=== PATIENT | male | born 1985 | race Caucasian/White ===

== ENCOUNTER 2024-05-03 18:45 | Observation (INO) | payer OTHER, SELFPAY ==
[2024-05-03] VITALS (8 sets, daily range): BP systolic 122–142; BP diastolic 62–86; BMI 29.0
--- NOTE | 2024-05-03 13:02 | ED.GENMED ---
ED Provider Triage
<Rea Acharya PA-C - Last Filed: 05/03/24 16:32>
-
Patient seen by provider in Triage?: Seen in Triage
Attestation: A medical screening examination has been initiated by a qualified medical provider. Based on the assessment performed at this time, it has been determined that an emergent medical condition may exist and the patient has been informed
that further medical evaluation and possible additional diagnostic testing may be needed.
HPI: 39yoM here with congestion, SOB, chest discomfort since the weekend. Yong recently had walking pneumonia. Oxygen saturation 94% on home pulse ox.
GENERAL: Alert , in no apparent distress
EYE: No visual abnormalities.
NECK: Trachea midline
ENT: No visible abnormalities.
LUNGS: No acute respiratory distress
NEUROLOGICAL: Alert and oriented
SKIN: Skin intact. No visible changes.
MUSCULOSKELETAL: Moving extremities normally
PSYCH: Normal and appropriate interaction.
This is a medical evaluation conducted in person to initiate diagnostic evaluation and provide initial therapeutics. Please see further documentation by the treating clinician.
Cardiac labs, EKG, COVID/flu swab, and CXR ordered.
History of Present Illness
<Rea Acharya PA-C - Last Filed: 05/03/24 16:32>
General
Chief Complaint: Breathing Problem
Time Seen by Provider: 05/03/24 14:16
<Tracey Greenwood PA-C - Last Filed: 05/03/24 18:01>
General
Source: patient
Exam Limitations: none
Nursing documentation reviewed up to this point in time: agreed with
History of Present Illness
History of Present Illness:
This is a 39 y/o male with pmh of enlarged left ventricle presents emergency department today with concerns of chest pain for the past 2 days. Patient also has associated congestion and intermittent coughing. Patient has not had any fevers or
chills. Patient has had no sick contacts. Patient states that this feels similar to when he had COVID. Patient denies any recent travel, any cancer history, any redness or swelling in his lower extremities. Patient has no family history of
cardiac disease. Patient does not smoke. 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 Patient states that
the pain is worse when he has a deep breath, he has not noticed that it gets worse with exertion. Patient denies any upper back pain. Patient denies any belly pain, nausea, vomiting.
Review of Systems
<Tracey Greenwood PA-C - Last Filed: 05/03/24 18:01>
Review of Systems
All Other Systems: ROS reviewed and negative except as documented in HPI and ROS
Phy Exam
<Tracey Greenwood PA-C - Last Filed: 05/03/24 18:01>
Physical Exam
Physical Exam:
General: Patient is well appearing and in no acute distress; non-toxic
Skin: Warm and dry, no rashes or lesions
Head: Normocephalic, atraumatic
Eyes: Sclera non-icteric. EOMs intact.
Cardiac: Regular rate and rhythm, no murmurs, no tenderness to palpation of the external chest wall
Pulm: Normal respiratory effort, no wheezes, rales, or rhonchi
Neuro: CN II-XII intact, no focal neurologic deficits.
Psychiatric: Appropriate mood and affect.
Course
<Rea Acharya PA-C - Last Filed: 05/03/24 16:32>
Orders/Labs/Results
Orders:
Orders
05/03/24 12:42
EKG [Electrocardiogram (*1)] Urgent
Reason for Study: Chest Pain
EKG- Treatment ONCE
05/03/24 13:10
COVID-19 Antigen Urgent
Source: Nasal Swab
Complete Blood Count/With Diff Urgent
Comprehensive Metabolic Panel Urgent
Troponin I Urgent
Influenza A+B Rapid Molecular Urgent
VALERIE Source: Nasal Swab
Specimen Description:
05/03/24 14:27
CT Chest Pe Study Urgent
Comment:
Reason For Exam: pleurtic chest pain
05/03/24 16:00
Electrocardiogram (*1) Urgent
Reason for Study: Chest Pain
05/03/24 16:01
Troponin I Urgent
05/03/24 16:37
CefTRIAXone [Rocephin] 1,000 mg IV NOW STA
Ipratropium/Albuterol Sulfate [Duoneb] 3 ml INH R NOW STA
MethylPREDNISolone PF [Solu-Medrol Pf] 125 mg IV NOW STA
05/03/24 16:38
Azithromycin 500 mg/250 ml [Zithromax Infusion] 500 mg in 250 ml IV NOW
CefTRIAXone [Rocephin] 1,000 mg IV NOW STA
05/03/24 17:01
Sterile Water [Sterile Water For Injection] 10 ml .ROUTE .[facility]-MED ONE
05/03/24 17:42
Doxycycline Hyclate [Vibramycin] 100 mg 0.9% Sodium Chloride 250 ml [Nss] 250 ml IV NOW
Abnormal Lab Results
05/03/24 05/03/24
13:10 16:01
Absolute Monos (auto) 0.9 H 10^3/uL
(0.1-0.6)
Monocytes % 10.0 H %
(1.7-9.3)
Carbon Dioxide 32 H mmol/L
(22-30)
Glucose 102 H mg/dl
(70-99)
Troponin I 0.083 H* ng/ml 0.090 H* ng/ml
05/03/24 13:10
05/03/24 13:10
Vital Signs
Initial and Last Documented VS:
Initial Vital Signs
Temp Pulse Resp BP Pulse Ox
98.3 F 51 18 137/86 100
05/03/24 12:57 05/03/24 12:57 05/03/24 12:57 05/03/24 12:57 05/03/24 12:57
Last Documented Vital Signs
Temp Pulse Resp BP Pulse Ox
98.3 F 53 16 125/76 98
05/03/24 12:57 05/03/24 17:00 05/03/24 12:59 05/03/24 17:00 05/03/24 15:50
<Tracey Greenwood PA-C - Last Filed: 05/03/24 18:01>
Orders/Labs/Results
Orders:
Orders
05/03/24 12:42
EKG [Electrocardiogram (*1)] Urgent
Reason for Study: Chest Pain
EKG- Treatment ONCE
05/03/24 13:10
COVID-19 Antigen Urgent
Source: Nasal Swab
Complete Blood Count/With Diff Urgent
Comprehensive Metabolic Panel Urgent
Troponin I Urgent
Influenza A+B Rapid Molecular Urgent
VALERIE Source: Nasal Swab
Specimen Description:
05/03/24 14:27
CT Chest Pe Study Urgent
Comment:
Reason For Exam: pleurtic chest pain
05/03/24 16:00
Electrocardiogram (*1) Urgent
Reason for Study: Chest Pain
05/03/24 16:01
Troponin I Urgent
05/03/24 16:37
CefTRIAXone [Rocephin] 1,000 mg IV NOW STA
Ipratropium/Albuterol Sulfate [Duoneb] 3 ml INH R NOW STA
MethylPREDNISolone PF [Solu-Medrol Pf] 125 mg IV NOW STA
05/03/24 16:38
Azithromycin 500 mg/250 ml [Zithromax Infusion] 500 mg in 250 ml IV NOW
CefTRIAXone [Rocephin] 1,000 mg IV NOW STA
05/03/24 17:01
Sterile Water [Sterile Water For Injection] 10 ml .ROUTE .STK-MED ONE
05/03/24 17:42
Doxycycline Hyclate [Vibramycin] 100 mg 0.9% Sodium Chloride 250 ml [Nss] 250 ml IV NOW
Abnormal Lab Results
05/03/24 05/03/24
13:10 16:01
Absolute Monos (auto) 0.9 H 10^3/uL
(0.1-0.6)
Monocytes % 10.0 H %
(1.7-9.3)
Carbon Dioxide 32 H mmol/L
(22-30)
Glucose 102 H mg/dl
(70-99)
Troponin I 0.083 H* ng/ml 0.090 H* ng/ml
05/03/24 13:10
05/03/24 13:10
Vital Signs
Initial and Last Documented VS:
Initial Vital Signs
Temp Pulse Resp BP Pulse Ox
98.3 F 51 18 137/86 100
05/03/24 12:57 05/03/24 12:57 05/03/24 12:57 05/03/24 12:57 05/03/24 12:57
Last Documented Vital Signs
Temp Pulse Resp BP Pulse Ox
98.3 F 53 16 125/76 98
05/03/24 12:57 05/03/24 17:00 05/03/24 12:59 05/03/24 17:00 05/03/24 15:50
<Avery Murphy MD - Last Filed: 05/03/24 16:38>
Orders/Labs/Results
Orders:
Orders
05/03/24 12:42
EKG [Electrocardiogram (*1)] Urgent
Reason for Study: Chest Pain
EKG- Treatment ONCE
05/03/24 13:10
COVID-19 Antigen Urgent
Source: Nasal Swab
Complete Blood Count/With Diff Urgent
Comprehensive Metabolic Panel Urgent
Troponin I Urgent
Influenza A+B Rapid Molecular Urgent
VALERIE Source: Nasal Swab
Specimen Description:
05/03/24 14:27
CT Chest Pe Study Urgent
Comment:
Reason For Exam: pleurtic chest pain
05/03/24 16:00
Electrocardiogram (*1) Urgent
Reason for Study: Chest Pain
05/03/24 16:01
Troponin I Urgent
05/03/24 16:37
CefTRIAXone [Rocephin] 1,000 mg IV NOW STA
Ipratropium/Albuterol Sulfate [Duoneb] 3 ml INH R NOW STA
MethylPREDNISolone PF [Solu-Medrol Pf] 125 mg IV NOW STA
05/03/24 16:38
Azithromycin 500 mg/250 ml [Zithromax Infusion] 500 mg in 250 ml IV NOW
CefTRIAXone [Rocephin] 1,000 mg IV NOW STA
05/03/24 17:01
Sterile Water [Sterile Water For Injection] 10 ml .ROUTE .[facility]
05/03/24 17:42
Doxycycline Hyclate [Vibramycin] 100 mg 0.9% Sodium Chloride 250 ml [Nss] 250 ml IV NOW
Abnormal Lab Results
05/03/24 05/03/24
13:10 16:01
Absolute Monos (auto) 0.9 H 10^3/uL
(0.1-0.6)
Monocytes % 10.0 H %
(1.7-9.3)
Carbon Dioxide 32 H mmol/L
(22-30)
Glucose 102 H mg/dl
(70-99)
Troponin I 0.083 H* ng/ml 0.090 H* ng/ml
05/03/24 13:10
05/03/24 13:10
Vital Signs
Initial and Last Documented VS:
Initial Vital Signs
Temp Pulse Resp BP Pulse Ox
98.3 F 51 18 137/86 100
05/03/24 12:57 05/03/24 12:57 05/03/24 12:57 05/03/24 12:57 05/03/24 12:57
Last Documented Vital Signs
Temp Pulse Resp BP Pulse Ox
98.3 F 53 16 125/76 98
05/03/24 12:57 05/03/24 17:00 05/03/24 12:59 05/03/24 17:00 05/03/24 15:50
<Tracey Greenwood PA-C - Last Filed: 05/03/24 18:01>
MDM/Problems Addressed
Differential Diagnosis Includes:
ddx include PE, myocarditis, pericarditis, pneumonia, pneumothorax
MDM/Problems Addressed:
39 y/o male presents to the ER today with concerns of pleuritic chest pain. On exam, he is well appearing in no acute distress, heart RRR, no murmurs. Afebrile. CTA negative for PE does show pneumonia. In light of troponin mildly elevated,will admit
for further cardiac workup and pneumonia treatment.
Chronic conditions affecting care:
n/a
Acute Exacerbation and/or Progression of Chronic Illness:
n/a
<Tracey Greenwood PA-C - Last Filed: 05/03/24 18:01>
*Critical Care Note
Total Time (30-74mins, 75-104mins- exclusive of procedures): Not Applicable
ED Attending Note
<Rea Acharya PA-C - Last Filed: 05/03/24 16:32>
-
Portions of this chart may have been created with voice recognition software.� Occasional wrong word or��sound alike� substitutions may have occurred due to the inherent limitations of voice recognition software.
<Avery Murphy MD - Last Filed: 05/03/24 16:38>
ED Attending Note
Patient seen and examined by attending physician: Yes
ED Attending Note:
I have seen and evaluated the patient with a [id number] encounter. I have spoken to the advance practicer provider and involved in the medical history, the physical exam, medical decision making.
Evaluation and management service: agree unless noted differently below.
Results interpretation: agree unless noted differently below.
Focused HPI: 39-year-old male with no reported chronic medical issues presents to the ER for evaluation of chest pain. Patient reports that symptoms started Thursday and have been constant since that time. He reports a heaviness/soreness in the mid
sternum that is consistent but he will occasionally have sharper pains particular inspiration. He reports a sensation of congestion in the chest. Reports mild shortness of breath. He has had wheezing and mild coughing. Denies any fever. He
denies any other complaints.
Physical exam: Awake alert not in distress. Vital signs all within acceptable range. He has scattered wheezing throughout all lung szymanski. Occasional cough. No cardiac rubs gallops or murmurs appreciated. No edema in the extremities.
Medical Decision Makin-year-old male presents to the emergency room for evaluation of atypical chest pain associate with congestion and cough, wheezing over the past few days. Labs were sent off including a CBC and a CMP which were
unremarkable. His EKG shows a sinus rhythm. His initial troponin is elevated to 0.083. COVID and flu negative. CTA chest showed no PE but does show small right upper lobe pneumonia. Possible troponin elevation is in the setting of demand with
respiratory infection versus viral infection with some element of rahel-/myocarditis. Will plan to cover with antibiotics for pneumonia. Will give DuoNeb treatment with wheezing and provide a dose of steroids. Will admit for trending of troponins.
Discharge Plan
Departure
Patient Disposition: Admit
Date of Disposition: 05/03/24
Time of Disposition: 16:40
Admit to: Med/Surg
Presentation/result/management discussed w/ accepting MD/DO: Hospitalist
Discharge Problem:
Community acquired pneumonia, Chest pain, Elevated troponin
Prescriptions:
No Action
No Current Medications
0
Referrals:
Maximiliano Adams DO [Family Provider] -
Interventions
Interventions:
*Risk Screen - Suicide Last Done: 05/03/24 16:00
*General Assessment Last Done: 05/03/24 15:45
*Neglect/Abuse Screening Last Done: 05/03/24 15:45
ED- Fall Risk Assessment Last Done: 05/03/24 15:59
*ED COVID-19 Vaccine History Last Done: 05/03/24 15:45
ED- Cardiac Assessment Last Done: 05/03/24 15:45
ED- Pulmonary Assessment Last Done: 05/03/24 15:50
Discharge Date and Time
Print Language: TAMAZIGHT
[2024-05-03 13:30] LABS: % Eosinophils 3.1 % (0-6); % Immature Granulocytes 0.2 % (0-0.5); % Lymphocytes 29.1 % (20.5-51.1); % Neutrophils 56.6 % (42.2-75.2); Absolute Basophils 0.1 10^3/uL (0-0.2); Absolute Eosinophils 0.3 10^3/uL (0-0.7); Absolute Lymphocytes 2.5 10^3/uL (1.2-3.4); Absolute Monocytes 0.9 10^3/uL (0.1-0.6); Absolute Neutrophils 4.9 10^3/uL (1.4-6.5); Hematocrit 46.3 % (39.0-52.0); Hemoglobin 15.4 g/dL (13.0-18.0); Mean Corp Hgb Conc. 33.3 g/dL (33.0-37.0); Mean Corpuscular Hgb 30.2 pg (27.0-31.0); Mean Corpuscular Volume 90.8 fL (80.0-94.0); Mean Platelet Volume 9.5 fL (7.4-10.4); Nucleated Red Blood Cells % 0 % (-); Platelet Count 278 10^3/uL (130-400); Red Cell Dist. Width 13.2 % (11.5-14.5); White Blood Cell Count 8.7 10^3/uL (4.8-10.8)
[2024-05-03 13:43] LABS: ALT (SGPT) 37 U/L (0-50); AST (SGOT) 25 U/L (17-59); Albumin 4.7 g/dl (3.5-5.0); Alkaline Phosphatase 39 U/L (38-126); Blood Urea Nitrogen 12 mg/dl (9-20); COVID-19 Antigen Negative (Negative); Calcium 9.6 mg/dl (8.4-10.2); Carbon Dioxide 32 mmol/L (22-30); Chloride 100 mmol/L (98-107); Glucose 102 mg/dl (70-99); Potassium 4.4 mmol/L (3.5-5.1); Sodium 139 mmol/L (135-145); Total Bilirubin 0.9 mg/dl (0.2-1.3); Total Protein 7.6 g/dl (6.3-8.2); eGFR > 60.00
[2024-05-03 14:06] LABS: Troponin I 0.083 ng/ml
[2024-05-03] MEDS: ROCEPHIN 1000 MG IV (17:12)
[2024-05-03] MEDS: SOLU-MEDROL PF 125 MG IV (17:21)
--- NOTE | 2024-05-03 17:21 | HPS.HSE ---
Addendum entered and electronically signed by Rosa Mayo MD 05/03/24 18:25:
I saw and examined the patient independently. The CRM MARKETING SPECIALIST's note was reviewed and I agree with the note.
GENERAL: well developed, well nourished, male in no apparent distress
HEENT: NC/AT--no O2 requirements
HEART: regular rate and rhythm, +S1, +S2--bradycardic
LUNGS : raspy breath sounds RUL--no wheezing
ABDOM: soft, nontender, nondistended, + bowel sounds
EXT: no cyanosis, clubbing, or edema
NEUROLOGIC: grossly intact
SOB/chest pain--kids sick with URI--CT scan without PE--RUL patchy infiltrate--covid/flu both negative--will give IV rocephin and oral doxy for 'walking pneumonia'--no O2 requirements
mild troponin elevation--likely nonischemic myocardial injury--trend--EKG x 2 without any findings other than bradycardia--check ECHO (HX of enlarged left ventricle?)--hold on cards eval for now
DVT proph
code status -- FULL CODE
Original Note:
Family Physician
-
Family Physician: Maximiliano Adams
Chief Complaint
-
Chest tightness/shortness of breath
History of Present Illness
Patient is a 39-year-old male with no significant past medical history who presented to [place] ED for evaluation of chest tightness and shortness of breath. Patient states that over the weekend he started with some chest discomfort that is
described as 'tightness,' associated with shortness of breath. Patient states that symptoms seemed worse at night when lying down and he denies anything making better. He reports two of his five children recently were infected with pneumonia.
Patient denies any fever, chills, nausea, vomiting, constipation, diarrhea or urinary symptoms.
Medical History
Past Medical History
Past Medical History: Reports None
Past Surgical History: Reports Other
Social History
Tobacco: Former Smoker
Alcohol: None
Drug: Former User
Personal:
Living: With Family
Employment: Employed
Family History
Family History: Other (Mom, Dad and siblings are healthy)
Allergies / Home Medications
Allergies reflects when Allergies were last updated in [employer].
Home Medications with original date entered in [employer]
Allergy/Medication List:
Allergies
Allergy/AdvReac Type Severity Reaction Status Date / Time
No Known Allergies Allergy Verified 05/03/24 13:01
Home Medications
No Meds [No Current Medications] 05/03/24
Review of Systems
-
History Source: Patient
Constitutional: Reports Sleep Disturbance
EENT: Reports No Symptoms
Respiratory: Reports Trouble Breathing (shortness of breath)
Cardiac: Reports Other (chest tightness)
Abdomen/GI: Reports No Symptoms
: Reports No Symptoms
Musculoskeletal: Reports No Symptoms
Skin: Reports No Symptoms
Neurological: Reports No Symptoms
Endocrine: Reports No Symptoms
Hematologic/Lymphatic: Reports No Symptoms
Psych: Reports No Symptoms
Physical Exam
Vital Signs
Vital Signs
Temp Pulse Resp BP Pulse Ox
98.3 F 53 16 130/74 98
05/03/24 12:57 05/03/24 15:37 05/03/24 12:59 05/03/24 15:36 05/03/24 15:50
Physical Exam
General: Well Developed, Well Nourished, No Apparent Distress, Comfortable and Conversant
HEENT: NormoCephalic, Moist mucous membranes, Atraumatic, [place] Conjunctivae, Nose Appears Normal and Ears Appear Normal
Respiratory: Crackles (at bilateral bases) and Non Labored Respirations
Cardiac: S1/S2 and Regular Rhythm; No Murmur, Rub or Gallop
Breast: Deferred by me
GI: Soft, Non Tender, Non Distended and Normal Bowel Sounds; No Organomegaly
Rectal: Deferred by Provider
Genito-urinary: Deferred by me
Musculoskeletal: No Clubbing, No Cyanosis and No Edema
Skin: No Rash
Neuro: Awake, AO x 3 and Nonfocal/grossly intact
Hematologic/Lymphatic: No Lymphadenopathy
Psych: Calm and Intact Judgment/Insight
Laboratory Results
-
05/03/24 13:10
05/03/24 13:10
Laboratory Results
Total Bilirubin 0.9 mg/dl (0.2-1.3) 05/03/24 13:10
AST 25 U/L (17-59) 05/03/24 13:10
ALT 37 U/L (0-50) 05/03/24 13:10
Alkaline Phosphatase 39 U/L (38-126) 05/03/24 13:10
Troponin I 0.090 ng/ml H* 05/03/24 16:01
Data Reviewed
-
CT Scan: Report Reviewed by me (Chest: Examination is negative for pulmonary embolism. Evaluation of inferior pulmonary artery branches somewhat limited by respiratory motion artifact. Focal area of patchy parenchymal airspace opacity within the
right upper lobe, compatible with a focal area of patchy pneumonia. Slightly enlarged)
Medical Tests (Nuc Med, Echo, EKG etc): Report Reviewed by me (EKG: SINUS BRADYCARDIA)
Lab Data: Labs Reviewed by me (trop 0.083, 0.090)
Impression/Plan
-
IMPRESSION/PLAN:
#Chest pain/shortness of breath
Trop 0.083 (1310), 0.090 (1601)
CT: Examination is negative for pulmonary embolism. Evaluation of inferior pulmonary artery branches somewhat limited by respiratory motion artifact.
Focal area of patchy parenchymal airspace opacity within the right upper lobe, compatible with a focal area of patchy pneumonia. Slightly enlarged right hilar lymph node, which is likely a reactive inflammatory lymph node
1 cm bleb within the right middle lobe.
- Admit to telemetry
- trend troponin
- Echo
- Rocephin
- PO Doxycycline
Code Status: Full Code
DVT Prophylaxis: Lovenox Sq
[2024-05-03] MEDS: DUONEB 3 ML INH (17:25)
[2024-05-03] MEDS: VIBRAMYCIN 260 MG IV (18:00)
[2024-05-03 21:54] LABS: Troponin I 0.088 ng/ml
[2024-05-03] MEDS: ROBITUSSIN 200 MG PO (23:52)
[2024-05-03] MEDS: TESSALON PERLES 100 MG PO (23:52)
[2024-05-04] VITALS: BP 134/67
[2024-05-04 03:13] VITALS: BP 135/101
[2024-05-04 03:43] LABS: Troponin I 0.087 ng/ml
[2024-05-04 04:00] VITALS: BP 112/55
[2024-05-04] MEDS: ROBITUSSIN 200 MG PO (04:53)
[2024-05-04 05:14] LABS: Hematocrit 42.8 % (39.0-52.0); Hemoglobin 14.9 g/dL (13.0-18.0); Mean Corp Hgb Conc. 34.8 g/dL (33.0-37.0); Mean Corpuscular Hgb 31.6 pg (27.0-31.0); Mean Corpuscular Volume 90.7 fL (80.0-94.0); Mean Platelet Volume 10.3 fL (7.4-10.4); Platelet Count 260 10^3/uL (130-400); Red Blood Cell Count 4.72 10^6/uL (4.70-6.10); Red Cell Dist. Width 13.1 % (11.5-14.5); White Blood Cell Count 8.9 10^3/uL (4.8-10.8)
[2024-05-04 05:44] LABS: ALT (SGPT) 31 U/L (0-50); AST (SGOT) 24 U/L (17-59); Albumin 4.3 g/dl (3.5-5.0); Alkaline Phosphatase 37 U/L (38-126); Blood Urea Nitrogen 14 mg/dl (9-20); Calcium 9.5 mg/dl (8.4-10.2); Carbon Dioxide 24 mmol/L (22-30); Chloride 102 mmol/L (98-107); Estimated Creatinine Clearance > 125 ml/min; Glucose 189 mg/dl (70-99); HDL Cholesterol 50 mg/dl; LDL Cholesterol, Calculated 95 mg/dl; Potassium 4.8 mmol/L (3.5-5.1); Sodium 139 mmol/L (135-145); Total Bilirubin 0.5 mg/dl (0.2-1.3); Total Cholesterol 155 mg/dl (50-199); Triglyceride 51 mg/dl (10-149); Very Low Density Lipoprotein 10 mg/dl (0-30); eGFR > 60.00
[2024-05-04 06:00] VITALS: BP 118/52
[2024-05-04] MEDS: VIBRAMYCIN 100 MG PO (08:29)
--- NOTE | 2024-05-04 08:47 | W.PN.HOSP.TC ---
Today's Communication/Plan
-
await echo
possible d/c today
Assessment / Plan
Assessment / Plan
pt is a 39 year old male
SOB/chest pain--kids sick with URI--CT scan without PE--RUL patchy infiltrate--covid/flu both negative--will give IV rocephin and oral doxy for 'walking pneumonia'--no O2 requirements--will change to oral abx at d/c
mild troponin elevation--likely nonischemic myocardial injury--trend--EKG x 2 without any findings other than bradycardia--await ECHO (HX of enlarged left ventricle?)--hold on cards eval for now
DVT proph
code status -- FULL CODE
Anticipated Discharge: Within 24 hours
Subjective/Interval History
-
Date of Service: May 04, 2024
pt wants to go home but not yet off O2
Objective Data
-
Labs:
Laboratory Results
05/04/24
04:48
WBC 8.9
Hgb 14.9
Hct 42.8
Plt Count 260
Sodium 139
Potassium 4.8
Chloride 102
Carbon Dioxide 24
BUN 14
Creatinine 0.8
Glucose 189 H
Calcium 9.5
Total Bilirubin 0.5
AST 24
ALT 31
Alkaline Phosphatase 37 L
Vital Signs:
max temp for 24 hours
05/03/24
19:00
Temp 99.6 F
Vital Signs
Temp Pulse Resp BP Pulse Ox
99.6 F 54 16 118/52 94
05/03/24 19:00 05/04/24 08:28 05/03/24 19:00 05/04/24 06:00 05/04/24 08:28
Review of Systems
-
All other systems: Reviewed and negative
Physical Exam
-
General: Well Developed, Well Nourished and No Apparent Distress
HEENT: Normocephalic and Atraumatic; Negative Oxygen
Respiratory: Wheezes and Decreased Breath Sounds
Cardiac: Regular Rhythm and S1/S2; Negative Murmur
GI: Soft, Nontender, Nondistended and Normal Bowel Sounds
Musculoskeletal: No Clubbing, No Cyanosis and No Edema
Neuro: Awake
Psych: Calm
[2024-05-04 09:04] LABS: Glycohemoglobin (HgbA1c) 5.8 % (4.0-5.6)
--- NOTE | 2024-05-04 09:34 | CM ---
Patient seen at bedside. Patient stated he lives with and children. Patient stated he lives in a 2 story home and has no DME. Patient was independent of ADL's and IADL's prior to admission. Patient PCP Dr. Ziegler and he uses the [facility]
in [place]. Patient reviewed OBS status and signed form placed on chart. Patient for discharge home today and CM updated nursing. Patient plan is for to take him home when discharged. CM will continue to follow for discharge planning needs.
Plan; home with no needs anticipated
[2024-05-04 10:00] VITALS: BP 137/64
--- NOTE | 2024-05-05 07:00 | W.DCSUMMARY ---
Discharge Summary
Discharge Data
Date of Admission: 05/03/24
Date of Discharge: 05/04/24
-
Pending Results: No
Hospital Course
Primary care physician : Maximiliano Adams
Principal Discharge diagnosis : Right upper lobe pneumonia, nonischemic myocardial injury troponin elevation
Chronic Discharge diagnosis : None
Hospital Course : Patient was a 39-year-old male without any significant past medical history who presented for evaluation of chest tightness and shortness of breath. Patient stated over the weekend prior to admission he noted some chest discomfort
that he described as a 'tightness'. He stated that symptoms seem worse at night when lying down and nothing makes it feel better. 2 of his 5 children recently were infected with pneumonia. He denied fever, chills, nausea, vomiting, constipation,
diarrhea, or urinary symptoms. Patient was admitted.
Problem #1: Right upper lobe pneumonia. Patient had a CAT scan of his chest which did not show any pulmonary embolism. He did have a focal area of patchy parenchymal airspace within the right upper lobe compatible with an area of pneumonia.
Patient did not require oxygen. He was placed on IV Rocephin and oral doxycycline. He was discharged home on oral cephalexin to complete a course.
Problem #2: Nonischemic myocardial injury troponin elevation. Patient's troponins were found to be elevated (0.083, 0.090, 0.088, 0.090, 0.087). He had 2 EKGs which showed sinus bradycardia otherwise normal. He did have an echocardiogram done as
he told us he had a history of 'enlarged left ventricle 12 years prior that he never followed up on'. Echocardiogram was within normal limits.
Patient is stable for discharge home at this time. If there are any questions regarding this dictation or his hospital stay, please do not hesitate to call. Our office number is [phone].
Important imaging findings :
CT SCAN CHEST IMPRESSION: Examination is negative for pulmonary embolism. Evaluation of inferior pulmonary artery branches somewhat limited by respiratory motion artifact.
Focal area of patchy parenchymal airspace opacity within the right upper lobe, compatible with a focal area of patchy pneumonia. Slightly enlarged right hilar lymph node, which is likely a reactive inflammatory lymph node
1 cm bleb within the right middle lobe.
ECHO CONCLUSIONS:
Left ventricle is mildly dilated. Normal left ventricular wall thickness.
Normal left ventricular systolic function. Normal regional wall motion. LV
ejection fraction is 62% by volumetric assessment. Normal diastolic function.
Discharge Plan
-
Patient Disposition: Home (Routine Discharge)
Discharge Diagnosis/Procedures: Walking pneumonia, nonischemic myocardial injury troponin elevation due to pneumonia
Condition: Good
Diet: As tolerated and Regular
Activity: As tolerated
Driving Restrictions: As prior to admission
Bathing Restrictions: None
Referrals:
Maximiliano Adams, [Family Provider] - in less than 1 week
Prescriptions:
New
benzonatate 100 mg Capsule
100 mg PO TIDPRN PRN (Reason: cough) Qty: 14 0RF
cephalexin 500 mg capsule
500 mg PO QID Qty: 28 0RF
Discharge Orders:
Discharge Patient (As Directed); Ordered 05/04/24
Ordered By: Rosa Mayo
Discharge Date and Time
Discharge Date/Time: 05/04/24 10:39
Print Language: CONGOLESE
== END 2024-05-04 10:39 | disposition home or self-care (01) ==
LOC: ED 18:45
PROVIDERS: Emergency Medicine; Nurse Practitioner Family; Physician Assistant; ADMITTING PHYSICIAN Internal Medicine; EMERGENCY PHYSICIAN Emergency Medicine; FAMILY PHYSICIAN Family Medicine
DX: J18.9 Pneumonia, unspecified organism (principal); R06.02 Shortness of breath; R07.89 Other chest pain; R09.89 Other specified symptoms and signs involving the circulatory and respiratory systems; I51.7 Cardiomegaly; R07.81 Pleurodynia; R00.1 Bradycardia, unspecified; I5A Non-ischemic myocardial injury (non-traumatic); Z87.891 Personal history of nicotine dependence; Z11.52 Encounter for screening for COVID-19
CPT/HCPCS: 71275; 80053; 80061; 83036; 84484; 85025; 85027; 87502; 87811; 93005; 93306; G0378; Q9967